=== PATIENT | female | born 1985 | race African-American/Black ===

== ENCOUNTER 2017-04-23 17:25 | Emergency (ER) | payer OTHER ==
--- NOTE | ~2017-04-23 | CR281 ---
[facility] A Service of [facility] RADIOLOGY TEXT RESULTS PATIENT: ELIAS COLVIN LOCATION: CFTX : 85 UNIT #: [id number] AGE: [address]: Raegan Srinivasan SEX: F ORDER DR: [id number] [facility] [address] [place], [place] [address] [id number] E MR#: [id number] Acc #: [id number] NAME: ELIAS COLVIN : 1985 SEX: F STUDY DATE/TIME: 04/23/2017 17:42 UNIT: [facility] ROOM: STUDY DESCRIPTION: CR Wrist Min 3 View Lt Attending Physician: Raegan Srinivasan Pa-C Ordering Physician: Ed Doctor [id number] [facility] Primary Care Physician: Primary Care Physician No MEDICAL IMAGING REPORT This report is preliminary unless electronic signature is present EXAM Left wrist 3 views HISTORY Wrist pain after injury today. FINDINGS Wrist evaluation in multiple projections shows normal mineralization of the bony structures about the wrist and satisfactory articular relationship of the radius and ulna to the proximal carpal row and of the distal carpal segments to the metacarpal bases. There is no indication of fracture or dislocation, and no soft tissue radiopaque foreign body is present. No congenital defects are apparent. IMPRESSION Normal wrist. Dictated by... Tramaine Dowell M.D. THIS IS AN ELECTRONICALLY VERIFIED REPORT Tramaine Dowell M.D. at 04/24/2017 11:03 PM DFL/rnr TD: 04/24/2017 04:38 JOB #: [id number] MEDICAL IMAGING REPORT Page 1 of 1 COPY
--- NOTE | ~2017-04-23 | CR142 ---
[facility] A Service of [facility] & [facility] RADIOLOGY TEXT RESULTS PATIENT: ELIAS COLVIN LOCATION: CFTX : 85 UNIT #: [id number] AGE: [address]: Raegan Srinivasan SEX: F ORDER DR: [id number] [place] [address]. [place], [place] [address] [id number] E MR#: [id number] Acc #: [id number] NAME: ELIAS COLVIN : 1985 SEX: F STUDY DATE/TIME: 04/23/2017 17:41 UNIT: [facility] ROOM: STUDY DESCRIPTION: CR Hand Min 3 Views Rt Attending Physician: Raegan Srinivasan Pa-C Ordering Physician: Ed Doctor [id number] [facility] Primary Care Physician: Primary Care Physician No MEDICAL IMAGING REPORT This report is preliminary unless electronic signature is present EXAM Right hand 3 views HISTORY Hand pain after crush injury today. FINDINGS AP, lateral, and oblique projections of the hand show good mineralization with normal carpal, metacarpal, and phalangeal anatomy without indication of fracture, dislocation, or soft tissue radiopaque foreign body. IMPRESSION Normal hand. Dictated by... Tramaine Dowell M.D. THIS IS AN ELECTRONICALLY VERIFIED REPORT Tramaine Dowell M.D. at 04/24/2017 11:03 PM DFL/gerardo TD: 04/24/2017 04:32 JOB #: [id number] MEDICAL IMAGING REPORT Page 1 of 1 COPY
--- NOTE | ~2017-04-23 | CR132 ---
[facility] A Service of [facility] RADIOLOGY TEXT RESULTS PATIENT: ELIAS COLVIN LOCATION: CFTX : 85 UNIT #: [id number] AGE: [address]: Raegan Srinivasan SEX: F ORDER DR: [id number] [facility] [address] [place], [place] [address] [id number] E MR#: [id number] Acc #: [id number] NAME: ELIAS COLVIN : 1985 SEX: F STUDY DATE/TIME: 04/23/2017 17:43 UNIT: [facility] ROOM: STUDY DESCRIPTION: CR Forearm 2 View Lt Attending Physician: Raegan Srinivasan Pa-C Ordering Physician: Ed Doctor [id number] [facility] Primary Care Physician: Primary Care Physician No MEDICAL IMAGING REPORT This report is preliminary unless electronic signature is present EXAM Left forearm, 2 views HISTORY Arm pain after injury today. FINDINGS AP and lateral views of the forearm show no evidence of fracture or destructive bone lesion. No periosteal elevation is seen. No radiodense foreign bodies are noted. Adjacent soft tissue structures are normal. IMPRESSION Normal forearm. Dictated by... Tramaine Dowell M.D. THIS IS AN ELECTRONICALLY VERIFIED REPORT Tramaine Dowell M.D. at 04/24/2017 11:03 PM DFL/gerardo TD: 04/24/2017 04:39 JOB #: [id number] MEDICAL IMAGING REPORT Page 1 of 1 COPY
== END 2017-04-23 19:15 | disposition home or self-care (01) ==
LOC: CFTX 17:25
DX: S60.221A Contusion of right hand, initial encounter (principal); S60.212A Contusion of left wrist, initial encounter; Z88.0 Allergy status to penicillin; Z91.040 Latex allergy status; W20.8XXA Other cause of strike by thrown, projected or falling object, initial encounter; Y92.009 Unspecified place in unspecified non-institutional (private) residence as the place of occurrence of the external cause
CPT/HCPCS: 73090; 73110; 73130; 99283